=== PATIENT | male | born 1955 | race Caucasian/White ===

== ENCOUNTER 2021-01-12 06:23 | Day surgery (SDC) | payer BC ==
[2021-01-09 14:13] LABS: Absolute Lymphocytes (CBC) 1.7 K/uL (0.7-4.9); Basophils % 0.4 % (0-1.3); Hematocrit 40.9 % (39.6-49.0); Lymphocytes % 31.4 % (15.3-44.8); MPV 9.7 fL (7.6-11.3); RBC Red Blood Cell Count 4.33 M/uL (4.33-5.43)
--- NOTE | 2021-01-10 17:44 | EKG ---
Test Date: 2021-01-09 Test Time: 11:56:41 Band Director: MALICK MEASUREMENT RESULTS: Intervals: Rate: 52 TX: 180 QRSD: 102 QT: 428 QTc: 398 Brogan: P: 45 TX: 180 QRS: 69 T: 71 INTERPRETIVE STATEMENTS: Sinus bradycardia Otherwise normal ECG No previous ECG available for comparison Electronically Signed On 01-10-21 17:40:27 CDT by Valeriano Weiss
[2021-01-12] MEDS ORDERED: CEFOXITIN/SWI 1gm 1 GM/10 ML SYR ONE (07:00)
[2021-01-12] MEDS ORDERED: Ringers Lactate 1,000 ML IV ONE ×2 (07:00→08:59)
[2021-01-12] MEDS ORDERED: propofoL 200 MG/20 ML VIAL IV ONE (07:34)
[2021-01-12] MEDS ORDERED: FENTANYL CITR 100 MCG/2 ML ONE ×2 (07:34→08:57)
[2021-01-12] MEDS ORDERED: MIDAZOLAM HCL 2 MG/2 ML INJ ONE (07:34)
[2021-01-12] MEDS ORDERED: LIDOCAINE 2% MPF 5 ML VIAL ONE (07:35)
[2021-01-12] MEDS ORDERED: ROCURONIUM 50 MG/5 ML VIAL IV ONE ×2 (07:35→08:26)
[2021-01-12] MEDS ORDERED: dexAMETHasone 10 MG/ML VIAL ONE (07:35)
[2021-01-12] MEDS ORDERED: KETOROLAC 30 MG/ML INJ ONE (07:35)
[2021-01-12] MEDS ORDERED: ONDANSETRON 4 MG/2 ML VIAL ONE (07:36)
--- NOTE | 2021-01-12 07:38 | P.HP ---
Date of Service: 01/12/21 PC: This 65-year-old male presents for elective bilateral inguinal hernia repair with mesh HPC: Patient is notice a bulge in his left groin. It larger causing more discomfort include shooting pain down into his testicles. Also has an area not as large on the right side. PMH: History of blood clots PSHx: Negative SOC: On Lovenox SYS REVIEW: No cough, wheeze, shortness of breath. No chest pain or palpitations. Denies any urinary complaints O/E awake alert vital signs are stable HEENT: Within normal limit Chest: Clear ABD: Abdomen is soft, hernia is currently reduced LOCO: Intact DATA: Within normal limits IMPRESSION: This patient has a large left inguinal hernia and smaller right. PLAN: I will take him to the operating room for a laparoscopic possible open inguinal hernia repair with mesh. The risks of this procedure have been discussed. The possibility of bleeding, infection, injury to bowel blood vessels and surrounding structures were outlined. Possibility of nerve irritation any injury were also explained. Bruising and bleeding were described. Recurrence and possible need for further surgeries and procedures was outlined. He understands and wants us to proceed.
[2021-01-12] MEDS ORDERED: EPHEDRINE SULF 50 MG/ML VIAL ONE (08:26)
[2021-01-12] MEDS ORDERED: GLYCOPYRROLATE 0.2 MG/ML SYR ONE (09:33)
[2021-01-12] MEDS ORDERED: NEOSTIGMINE 1 MG/ML -5 ML ONE (09:34)
--- NOTE | 2021-01-12 09:38 | P.OP ---
Preoperative diagnosis: Bilateral inguinal hernias Postoperative diagnosis: The same (indirect and indirect) Primary procedure: Laparoscopic repair of bilateral inguinal hernias with mesh Anesthesia: General Estimated blood loss: Less than 50 cc Specimen: 9 sent Findings: Inguinal indirect inguinal hernias Operative Technique: The patient brought to the operating room placed supine on the table. After the induction of adequate general endotracheal anesthesia, there the abdomen was prepped with a DuraPrep solution, a Mcdonald catheter was inserted, and he was draped in usual aseptic manner. A subumbilical incision was made. This was brought down through the skin and subcutaneous tissue. The fashion was identified in the midline. It just to the side of it was opened using a 11 blade. The fascia was elevated then balloon dissected was now passed down towards the pubic symphysis. It was inflated removed and the structural component left in the wound. The balloon was now inflated to hold the obturator in place. The preperitoneal space was inflated to approximately 12 mm of mercury. On inspection of the preperitoneal space, after cleaning the fat, a could see a large right and smaller left indirect inguinal hernia. Attention was turned towards the right side 1st. The sac was grasped. It was carefully dissected off of the spermatic cord and vessels. A small tear did develop during our dissection. There did going to the peritoneal cavity. At this point attention was now turned back towards the left side. Once again the smaller left indirect inguinal hernia sac was dissected off the spermatic cord will back up into the peritoneal cavity. The floor the pelvis was cleared. A piece of left median mesh was now introduced into the preperitoneal space. Using the Pro Tacker IAC tack was used to hold the mesh just at the Lyle's ligament. The mesh was then laid out laterally and a small to small attack was partially inserted and the tail to hold it in place towards the right side were this maneuver was repeated. Now with the camera in the neutral position and the patient being taken out of Trendelenburg we could visualize the mesh repairs with the pelvic floor. Gradually decreasing the preperitoneal space we could see the peritoneum roll up on top of the mesh hoping the anchored in place. At the end of the procedure the pneumoperitoneum was completely removed. The fascia at the emboli kiss was approximated using interrupted is suture. Pawan were then applied to the skin. At the end of the procedure the patient was in a stable condition when sent to the recovery room. Needle sponge instrument count were correct. No drains were placed. Complications: None Transferred to: Recovery Room Condition: Good
[2021-01-12] MEDS: MEPERIDINE HCL 25 MG/ML SYR ONE ×2 (09:40→09:50)
[2021-01-12] MEDS ORDERED: HYDROCODONE/APAP 7.5/325 MG TAB ONE (10:52)
[2021-01-12 11:27] VITALS: BP 110/61; TEMP 96.5; O2SAT 96
== END 2021-01-12 12:15 | disposition home or self-care (01) ==
LOC: OR 06:23
PROVIDERS: ATTEND Surgery
PROC: 0YUA4JZ Supplement Bilateral Inguinal Region with Synthetic Substitute, Percutaneous Endoscopic Approach (ICD-10-PCS; principal; 2021-01-12 07:30)
DX: K40.20 Bilateral inguinal hernia, without obstruction or gangrene, not specified as recurrent (principal); Z20.822 Contact with and (suspected) exposure to COVID-19
CPT/HCPCS: 93005; 85025; 36415; 49650; U0002; J2704; J2250; J3010 ×2; J1100; J2175; J2710; J7120 ×2; J2405